=== PATIENT | female | born 1980 | race Hispanic/Latino ===

== ENCOUNTER 2018-01-06 17:12 | Emergency (ER) | payer OTHER ==
[2018-01-06] MEDS ORDERED: Lactated Ringer's 1,000 ML IV ONE (17:41)
[2018-01-06 18:00] LABS: BASO % 0.7 % (0.0-2.0); EOS # 0.1 K/uL (0.0-0.7); EOS % 0.8 % (0.0-4.0); HEMOGLOBIN 10.8 g/dL (11.0-16.0); LYMPH # 1.3 K/uL (1.0-4.3); LYMPH % 21.6 % (20.0-40.0); MEAN CELL VOLUME 86.5 fL (81.0-99.0); MEAN CORPUSCULAR HEMOGLOBIN 29.3 pg (27.0-31.0); MEAN CORPUSCULAR HGB CONC 33.8 g/dL (33.0-37.0); MEAN PLATELET VOLUME 8.3 fL (7.2-11.7); MONO # 0.4 K/uL (0.0-0.8); NEUT # 4.4 K/uL (1.8-7.0); NEUT % 70.9 % (50.0-75.0); RBC 3.69 Mil/uL (3.80-5.20); RED CELL DISTRIBUTION WIDTH 13.2 % (11.5-14.5); WHITE BLOOD COUNT 6.2 K/uL (4.8-10.8)
[2018-01-06 18:09] LABS: SQUAMOUS EPITHIAL 3 /hpf (0-5); URINE BACTERIA RARE (<OCC); URINE BILIRUBIN NEGATIVE (NEGATIVE); URINE BLOOD NEGATIVE (NEGATIVE); URINE CLARITY Clear (Clear); URINE COLOR Yellow (YELLOW); URINE GLUCOSE (UA) 1+ mg/dL (Normal); URINE LEUKOCYTE ESTERASE NEG Leu/uL (Negative); URINE PROTEIN NEGATIVE (NEGATIVE); URINE UROBILINOGEN NORMAL mg/dL (0.2-1.0)
[2018-01-06 18:18] LABS: ALB/GLOB RATIO 1.3 (1.0-2.1); ALBUMIN 3.4 g/dL (3.5-5.0); ALT/SGPT 28 U/L (9-52); AST/SGOT 23 U/L (14-36); BLOOD UREA NITROGEN 7 mg/dL (7-17); CALCIUM 8.3 mg/dl (8.6-10.4); GFR AFRICAN-AMERICAN > 60; GFR NON-AFRICAN AMERICAN > 60
--- NOTE | 2018-01-06 18:42 | OBHP ---
Datetime: 01/06/2018 18:14 IP Admit Plan: Discharge home Admit Comment, IP Provider: @ 23.2 wks GA c/o lwoer pelvi pressure x 2 weeks after goign on a l rosa walk adn reprots sudden pressure. pt dnies any vb, lof, ctx, +FM. Pt denies any dysuira, urgency, frequency, and does rpeorts intemrittent conspitaoitn. pt preorts last bm this morning, no straining . OB: P0 [employer]: [place] PMH: depression, anxiet PSH: denies FHX: non contribotyr MEDS: PNV NKDA SHX: negative etoh/tobacc/dorugs FH:X non contibturoy A/P @ 23 wks GA with pleivc pressure f/u UA, CBC, CMP IVH tyoenol prn back brace referred to physical therapy percauting ginve note provided to be excused form court tomorrow rto 1 week Pelvic Type - PN: Adequate Extremities - PN: Normal Abdomen - PN: Normal Back - PN: Normal Breast - PN: Not Done Lungs - PN: Normal Heart - PN: Normal Thyroid - PN: Not Done Neurologic - PN: Normal HEENT - PN: Normal General - PN: Normal FHR - Baseline A Provider: 150 Contraction Comments Provider: none Gestation - Est Wks by US: 23.2 EGA AdmitDate IP: 23.2 Vital Signs Provider: Reviewed; Within Normal Limits IP Chief Complaint: Other NICHD Variability Prov Fetus A: Moderate 6-25bpm Dilatation, Provider: 0 Genitourinary Exam: Normal DTRs - PN: Normal
[2018-01-06 22:48] VITALS: BP 120/60; PULSE 88
== END 2018-01-06 18:46 | disposition home or self-care (01) ==
LOC: C.EROB 17:12
DX: O26.892 Other specified pregnancy related conditions, second trimester (principal); R10.2 Pelvic and perineal pain; Z3A.23 23 weeks gestation of pregnancy
CPT/HCPCS: 80053; 81001; 85025; 99283; J7120

== ENCOUNTER 2018-01-22 13:24 | Emergency (ER) | payer OTHER ==
[2018-01-22] MEDS: Sodium Chloride 0.9% 1,000 ML IV ONE ×2 (14:10→15:04)
[2018-01-22 14:11] LABS: BASO % 0.3 % (0.0-2.0); EOS # 0.1 K/uL (0.0-0.7); EOS % 0.7 % (0.0-4.0); HEMOGLOBIN 11.2 g/dL (11.0-16.0); LYMPH # 1.4 K/uL (1.0-4.3); LYMPH % 15.7 % (20.0-40.0); MEAN CELL VOLUME 87.1 fL (81.0-99.0); MEAN CORPUSCULAR HEMOGLOBIN 30.2 pg (27.0-31.0); MEAN CORPUSCULAR HGB CONC 34.7 g/dL (33.0-37.0); MEAN PLATELET VOLUME 7.6 fL (7.2-11.7); MONO # 0.5 K/uL (0.0-0.8); MONO % 5.2 % (0.0-10.0); NEUT # 7.1 K/uL (1.8-7.0); NEUT % 78.1 % (50.0-75.0); RBC 3.7 Mil/uL (3.80-5.20); RED CELL DISTRIBUTION WIDTH 13.9 % (11.5-14.5)
[2018-01-22 14:29] LABS: SQUAMOUS EPITHIAL 3 /hpf (0-5); URINE BILIRUBIN NEGATIVE (NEGATIVE); URINE BLOOD NEGATIVE (NEGATIVE); URINE CLARITY Hazy (Clear); URINE COLOR Amber (YELLOW); URINE GLUCOSE (UA) 3+ mg/dL (Normal); URINE LEUKOCYTE ESTERASE NEG Leu/uL (Negative); URINE PROTEIN 2+ mg/dL (NEGATIVE); URINE UROBILINOGEN NORMAL mg/dL (0.2-1.0)
[2018-01-22 14:38] LABS: ALB/GLOB RATIO 1.2 (1.0-2.1); ALBUMIN 3.5 g/dL (3.5-5.0); ALT/SGPT 36 U/L (9-52); AST/SGOT 21 U/L (14-36); BLOOD UREA NITROGEN 12 mg/dL (7-17); CALCIUM 9.1 mg/dl (8.6-10.4); GFR AFRICAN-AMERICAN > 60; GFR NON-AFRICAN AMERICAN > 60
[2018-01-22 14:39] VITALS: RESP 20
--- NOTE | 2018-01-22 14:50 | C.PDOC ---
History Of Present Illness 37-year-old female, presents to the emergency department with complaints of low blood pressure. Pt is 25 weeks , and has been experiencing episode of hypotension, associated with light headedness. Patient notes she had an episode of vaginal bleeding at 16 weeks which resolved. Her OBGYN is Dr Lynnette Sandra, who referred her to a cardiologists office. Patient was seen by cardiology today, states she had an episode of hypotension 80/40 with near syncope, and was sent to ED for further evaluation. Time Seen by Provider: 01/22/18 13:45 Chief Complaint (Nursing): Dizziness/Lightheaded History Per: Patient History/Exam Limitations: no limitations Current Symptoms Are (Timing): Still Present Past Medical History Reviewed: Historical Data, Nursing Documentation, Vital Signs Vital Signs: Last Vital Signs Temp 98.2 F 01/22/18 13:34 Pulse 77 01/22/18 14:38 Resp 20 01/22/18 14:38 BP 113/60 01/22/18 14:38 Pulse Ox 96 01/22/18 15:05 Family History: States: No Known Family Hx - Social History Hx Alcohol Use: No Hx Substance Use: No Review Of Systems Constitutional: Negative for: Fever, Chills Respiratory: Negative for: Shortness of Breath Gastrointestinal: Negative for: Nausea, Vomiting Genitourinary: Negative for: Dysuria, Vaginal Discharge, Vaginal Bleeding Musculoskeletal: Negative for: Back Pain Skin: Negative for: Rash Neurological: Negative for: Weakness, Numbness Physical Exam - Physical Exam Appears: Non-toxic, No Acute Distress Skin: Normal Color, Warm, Dry, No Rash Head: Atraumatic, Normacephalic Eye(s): bilateral: Normal Inspection, PERRL, EOMI Nose: Normal Oral Mucosa: Moist Lips: Normal Appearing Neck: Normal ROM Cardiovascular: Rhythm Regular, No Murmur Respiratory: Normal Breath Sounds, No Accessory Muscle Use Gastrointestinal/Abdominal: Soft, No Tenderness Back: Normal Inspection Extremity: Normal ROM, No Deformity Neurological/Psych: Oriented x3, Normal Speech ED Course And Treatment - Laboratory Results Result Diagrams: 01/22/18 14:03 01/22/18 14:03 Lab Interpretation: No Acute Changes O2 Sat by Pulse Oximetry: 96 Pulse Ox Interpretation: Normal Progress Note: Orthostatics were normal. Patient was treated with 2 liters of normal saline in ED. Reevaluation Time: 16:00 Reassessment Condition: Improved (Patient is asymptomatic. She is not stating that she has not felt the baby move in several days. Denies abdominal pain or discharge.) - Physician Consult Information Time Consulting Physician Contacted: 16:00 Physician Contacted: Lynnette Sandra Outcome Of Conversation: She will follow up wih the patient in the office. She is not concerned about the lack of movement at this stage of the . 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 Instructions: - The [facility] Month Forms: Tred (Chilean) - Clinical Impression Clinical Impression: Hypotension, - Scribe Statement The provider has reviewed the documentation as recorded by the Scribe (Bowen Lindsay) All medical record entries made by the Scribe were at my direction and personally dictated by me. I have reviewed the chart and agree that the record accurately reflects my personal performance of the history, physical exam, medical decision making, and the department course for this patient. I have also personally directed, reviewed, and agree with the discharge instructions and disposition.
[2018-01-22] MEDS ORDERED: Sodium Chloride 0.9% 1,000 ML ONE (15:03)
[2018-01-22 16:21] VITALS: BP 114/75; PULSE 89; TEMP 98.4; O2SAT 99
--- NOTE | 2018-01-24 12:11 | CARD ---
APPROVED REPORT Date of service: 01/22/2018 EKG Measurement Heart [id number] <Conclusion> Normal sinus rhythm Possible Left atrial enlargement Borderline ECG
== END 2018-01-22 16:20 | disposition home or self-care (01) ==
LOC: C.ER 13:24
DX: O26.892 Other specified pregnancy related conditions, second trimester (principal); I95.9 Hypotension, unspecified; Z3A.25 25 weeks gestation of pregnancy
CPT/HCPCS: 80053; 81001; 85025; 96360; 96361; 99285; J7030